=== PATIENT | female | born 1960 | race Caucasian/White ===

== ENCOUNTER 2019-08-18 08:19 | Emergency (ER) | payer BC ==
--- OUTSIDE RECORDS SUMMARY | 2019-08-18 08:27 | XMS REPORT | Continuity of Care Document ---
:1960 External Reference #:[id number] Author Name Mariana Carbone, OPHTHALMOLOGY SURGICAL TECHNICIAN Address [address] [place] [id number] Care Team Providers Name Role Phone Eugenio Goodrich MD - Dermatology Care Team Information Manager Of Broadcast Content Fabiola Tay Care Team Information Manager Of Broadcast Content [phone] Zach Madrid MD - Orthopaedic Care Team Information Manager Of Broadcast Content Surgery Talya Galloway NP - Family Care Team Information Manager Of Broadcast Content [phone] [facility] - Care Team Information Manager Of Broadcast Content Orthopaedic Surgery Problems Active Problems Provider Date Pure hypercholesterolemia Onset: 06/16/2015 Low back pain DigioSharon lopezricia, OPHTHALMOLOGY SURGICAL TECHNICIAN Onset: 07/21/2015 Allergic rhinitis DigiovannaSharonMariana, OPHTHALMOLOGY SURGICAL TECHNICIAN Onset: 07/19/2017 Mixed hyperlipidemia Digiovanna, Mariana, OPHTHALMOLOGY SURGICAL TECHNICIAN Onset: 07/19/2017 Tear film insufficiency Digiovanna, Mariana, OPHTHALMOLOGY SURGICAL TECHNICIAN Onset: 07/19/2017 Essential hypertension Digiovanna, Mariana, OPHTHALMOLOGY SURGICAL TECHNICIAN Onset: 07/19/2017 Posttraumatic stress disorder Digiovanna, Mariana, OPHTHALMOLOGY SURGICAL TECHNICIAN Onset: 07/19/2017 Vitamin D deficiency Digiovanna, Mariana, OPHTHALMOLOGY SURGICAL TECHNICIAN Onset: 04/02/2019 Social History Type Date Description Comments Sex Unknown ETOH Use Denies alcohol use Tobacco Use Start: Unknown End: Unknown Patient is a former smoker quit Smoking Status Reviewed: 05/21/19 Patient is a former smoker quit 12/17/16 Allergies, Adverse Reactions, Alerts Active Allergies Reaction Severity Comments Date Diprivan stopped breathing 04/19/2017 Seasonal 12/05/2017 Inactive Allergies NKDA 07/01/2015 Medications Active Medications SIG Qnty Indications Ordering Date Provider Cyclobenzaprine HCL 1-2 by mouth 30tabs M25.511 Digiovanna, 06/22/2019 5mg every 8 hours Mariana, OPHTHALMOLOGY SURGICAL TECHNICIAN Tablets as needed for pain Montelukast Sodium take 1 tablet 90tabs J30.9 Digiovanna, 12/05/2017 10mg by mouth once Mariana, OPHTHALMOLOGY SURGICAL TECHNICIAN Tablets daily Escitalopram Oxalate take 2 tablets 180tabs F44.4 Digiovanna, 09/05/2017 10mg by mouth once Mariana, OPHTHALMOLOGY SURGICAL TECHNICIAN Tablets daily through October then return to 1 daily F43.10 Fluticasone Propionate use one spray in 48gm F30.9 Digiovanna, Mariana, 07/19/2017 each nostril every OPHTHALMOLOGY SURGICAL TECHNICIAN 50mcg/Act Suspension day regularly J30.9 Lisinopril take 1 tablet by 90tabs I10 Digiovanna, Mariana, 07/19/2017 5mg Tablets mouth once daily OPHTHALMOLOGY SURGICAL TECHNICIAN Rosuvastatin Calcium take 1 tablet by 90tabs E78.2 Digiovanna, Mariana, 07/30/2016 10mg mouth every OPHTHALMOLOGY SURGICAL TECHNICIAN Tablets evening Ibuprofen 3-4 tabs by mouth M54.5 Unknown 200mg Capsules three times a day as needed with food or snack for pain Xyzal Allergy 24HR 1 by mouth every J30.9 Unknown 5mg day as needed Tablets Fish Oil Concentrate 1 by mouth every E78.2 Unknown 1000mg day Capsules Immunizations CPT Code Status Date Vaccine Reaction Lot # [id number] Given 05/07/2019 Influenza (Non Billable) Given at [facility], Unspecified [facility]. --per pt today. SA,UNIT SECY 06/08/19 [id number] Given 11/06/2018 Shingrix (Shingles) Zoster Vaccine HZV, Recombinant, [place] [address]100 Given 06/26/2018 Tdap (Adacel) Ages 7 And Im inj completed, Pt [id number] Above Only tolerated well [id number] Given 05/23/2018 [place] [id number] Given 05/23/2018 Shingrix (Shingles) Zoster per pt Vaccine HZV, Recombinant, Subunit, Adj Q2035 Given 07/05/2017 Afluria Imunization [facility] [id number] Given 07/01/2015 Pneumococcal 23 Immunization [id number] Adult Or Immunosuppressed Patient Vital Signs Date Vital Result Comment 07/06/2019 11:34am Weight 233.00 lb Heart Rate 88 /min BP Systolic 144 mmHg BP Diastolic 84 mmHg Respiratory Rate 18 /min Height 59 inches 4'11" [facility] 04/02/19 BMI (Body Mass Index) 47.1 kg/m2 06/22/2019 1:46pm Weight 230.00 lb Heart Rate 80 /min BP Systolic 144 mmHg BP Diastolic 82 mmHg Respiratory Rate 18 /min Height 59 inches 4'11" [facility] 04/02/19 BMI (Body Mass Index) 46.4 kg/m2 Results Test Acquired Facility Test Result H/L Range Note Date Laboratory 05/09/2019 [facility] Cologuard Negative Not 1 test finding Applicable Laboratory 03/20/2019 [facility] Vitamin D 25 20 ng/mL Low 30-100 2 test finding Hydroxy Lipid 03/20/2019 [facility] Cholesterol 161 mg/dL 50-199 Treatment Triglycerides 149 mg/dL 30-200 HDL 40 mg/dL 35-85 3 Chol/ HDL Ratio 4.0 ratio 3.7-5.6 VLDL 30 mg/dL High 2-29 LDL (Calc) 91 mg/dL 20-99 4 Alt 18 U/L 3-42 Ast 13 U/L 8-42 Basic (BMP) 03/20/2019 [facility] Sodium 141 mmol/L 135-146 5 Potassium 4.2 mmol/L 3.5-5.2 Chloride# 102 mmol/L 97-110 6 Carbon Dioxide 29 mmol/L 24-34 Glucose 96 mg/dL 70-105 BUN 15 mg/dL 6-26 Creatinine 0.9 mg/dL 0.5-1.4 Calcium 9.1 mg/dL 8.5-10.5 7 Female Egfr 74 >60 8 Male Egfr 94 >60 9 Anion Gap 10 mmol/L 5-15 10 CBC with Auto Diff-fcmg 03/20/2019 [facility] WBC 4.9 K/uL 4.1-11.0 RBC 4.30 M/uL 4.00-5.40 Hemoglobin 13.0 gm/dL 12.0-16.0 Hematocrit 38.5 % 36.0-47.0 MCV 89.4 fL 80.0-97.0 MCH 30.2 pg 27.0-32.0 MCHC 33.8 g/dL 32.0-36.0 RDW 12.7 % 11.5-14.5 PLT Count 196 K/ul 140-400 MPV 7.3 FL 7.1-10.7 Neutrophil 50.7 % 35.0-75.0 Lymphocyte 40.5 % 16.0-52.0 Monocyte 5.9 % 2.0-10.0 Eosinophil 1.7 % 0.0-5.0 Basophil 1.2 % 0.0-4.0 Abs Neutrophils 2.5 K/uL 2.1-8.0 Abs Lymphocytes 2.0 K/uL 0.8-5.5 Abs Monocytes 0.3 K/uL 0.1-1.0 Abs Eosinophils 0.1 K/uL 0.0-0.5 Abs Basophils 0.1 K/uL 0.0-0.3 1 A negative result indicates a low likelihood that a colorectal cancer (CRC) or an advanced adenoma (adenomatous polyps with more advanced pre-malignant features) is present. The chance that a person wit h a negative Cologuard test has a colorectal cancer is less than 1 in 1500 ( negative predictive value >99.9%) or has an advanced adenoma is less than 5.3% ( negative predictive value 94.7%). These jessica a are based on a prospective cross-sectional screening study of 10,000 individuals at average risk for colorectal cancer who were screened with both Cologuard and colonoscopy. (Ivon Abraham. et al, N Eng l J Med 2014;370(14):4887-9931) COLOGUARD RE-SCREENING RECOMMENDATION: Periodic routine colorectal cancer screening is an important part of preventive healthcare for asymptomatic persons at average risk for colorectal cancer. Following a negative Cologuard result, the [place] [employer] and U.S. Multi-Society Task Force screening guidelines recommend a Cologuard re-screening interval of 3 years. References: [employer] (ACS). Colorectal cancer prevention and early detection. [place], [place]: [employer]; [updated 2015Nov 08]. https://www.cancer.org/cancer/gbioi-hqjuyu-xxkbp r/nrtgiofss-tkjlopggz-ratjoqs/acs-recommendations.html. Accessed March 17, 2018; Aftab RAYMOND Ming CR, Faith DugganK, Colorectal Cancer Screening: Recommendations for Physicians and Patients from the U.S. M ulti-Society Task Force on Colorectal Cancer Screening, Am J Gastroenterology 2017; 112:8944-0968. Test Type: Composite algorithmic analysis of stool DNA-biomarkers with hemoglobin immunoassay. Quantitative values of individual biomarkers are not reportable and are not associated with individual biomarker result reference ranges. Precautions and Limitations: Cologuard is intended for colorectal cancer screening of adults of either sex, 50 years or older, who are at typical average-risk for colorectal cancer. A negative C ologuard test result does not guarantee the absence of colorectal cancer or advanced adenoma (pre-cancer). Patients with a negative Cologuard test result should be advised to continue participating in a colorectal cancer screening program. Cologuard may produce a positive result , even though a colonoscopy may not find colorectal cancer or precancerous polyps. The performance of Cologuard has been esta blished in a cross sectional study (i.e., single point in time). Performance has not been evaluated in adults who have been previously tested with Cologuard or in patients less than 50 years of age. Col oguard has been approved for use by the U.S. FDA. Cologuard performance data in a 10,000 patient pivotal study using colonoscopy as the reference method can be accessed at the following location: www.[employer]results. Additional description of the Cologuard test process, warnings and precautions can be found at www.cologuardtest.com. Rx Only. 2 Clinical Guidelines for recommended serum 25(OH)Vitamin D Deficient at less than 20 ng/mL Insufficient at 20 to <30 ng/mL Sufficient at 30-100 ng/mL Toxicity at greater than 100 ng/mL 3 Per NCEP ATP III Guidelines: Results lower than 40 mg/dL are suggestive of increased risk for coronary artery disease. Results > or = to 60 mg/dL are considered a negative risk factor. 4 Per NCEP ATP III Guidelines: Normal Population <130 Patients with medical conditions: CHD/DM Optimal: <100 Borderline high: 130-159 High: 160-189 Very high: >189 5 Updated reference range on new analyzer 6 Updated reference range on new analyzer 7 Updated reference range 11-15-2018 8 Concerning GFR Guidelines for Americans: Normal function or mild renal disease, if clinically at risk: >/= 60 mL/min Moderately decreased: 30-59 Severely decreased: 15-29 Renal failure: <15 There is reduced accuracy above 60ml/min/1.73 m squared, but the numeric value may be clinically useful in the near 60 range 9 Concerning GFR Guidelines: Normal function or mild renal disease, if clinically at risk: >/= 60 mL/min Moderately decreased: 30-59 Severely decreased: 15-29 Renal failure: <15 There is reduced accuracy above 60ml/min/1.73 m squared, but the numeric value may be clinically useful in the near 60 range Glomerular Filtration Rate (GFR) is estimated based on the CKD-EPI equation, which assumes a steady state for creatinine as recommended by the National Kidney Disease Education Program in conjunction with the National Institutes of Health and the National Kidney Foundation. Clinical conditions in which it may be necessary to measure GFR by using clearance methods include extremes of age and body size, severe malnutrition or obesity, diseases of skeletal muscle, paraplegia or quadriplegia, vegetarian diet, rapidly changing kidney function, and calculation of the dose of potentially toxic drugs that are excreted by the kidneys. 10 Updated Reference Range Procedures Date Code Description Status 04/16/2019 [id number] Mammogram Completed 09/05/2017 [id number] Mammogram Completed 12/17/2016 [id number] Colonoscopy Completed Medical Devices Description No Information Available Encounters Type Date Location Provider Dx Diagnosis Office Visit 06/22/2019 MICHELE Carbone, M25.511 Pain in RIGHT 1:45p Mariana, OPHTHALMOLOGY SURGICAL TECHNICIAN shoulder Z68.42 Body mass index (BMI) 45.0-49.9, adult Office Visit 2019 1:45p Mariana Montgomery, M25.511 Pain in RIGHT OPHTHALMOLOGY SURGICAL TECHNICIAN shoulder Z68.42 Body mass index (BMI) 45.0-49.9, adult Office Visit 05/28/2019 11:30a Mariana Montgomery, M25.511 Pain in RIGHT OPHTHALMOLOGY SURGICAL TECHNICIAN shoulder F43.10 Post-traumatic stress disorder, unspecified Office Visit 05/21/2019 2:45p Mariana Montgomery, M25.511 Pain in RIGHT OPHTHALMOLOGY SURGICAL TECHNICIAN shoulder Z68.42 Body mass index (BMI) 45.0-49.9, adult Office Visit 05/17/2019 9:30a [facility] Emilia Comer PA M25.511 Pain in RIGHT shoulder Z68.42 Body mass index (BMI) 45.0-49.9, adult Office Visit 04/02/2019 10:30a [facility] Digiovankarely, Mariana, Z00.00 Encntr for general OPHTHALMOLOGY SURGICAL TECHNICIAN adult medical exam w/o abnormal findings I10 Essential (primary) hypertension E78.2 Mixed hyperlipidemia F43.10 Post-traumatic stress disorder, unspecified R53.1 Weakness J30.9 Allergic rhinitis, unspecified H04.129 Dry eye syndrome of unspecified lacrimal gland E55.9 Vitamin D deficiency, unspecified Z12.11 Encounter for screening for malignant neoplasm of colon Z13.31 Encounter for screening for depression Z68.41 Body mass index (BMI) 40.0-44.9, adult Assessments Date Code Description Provider 07/06/2019 M25.511 Pain in RIGHT shoulder Digiovanna, Mariana, OPHTHALMOLOGY SURGICAL TECHNICIAN 06/22/2019 M25.511 Pain in RIGHT shoulder Digiovanna, Mariana, OPHTHALMOLOGY SURGICAL TECHNICIAN 06/22/2019 Z68.42 Body mass index (BMI) 45.0-49.9, adult Digiovanna, Mariana, OPHTHALMOLOGY SURGICAL TECHNICIAN 2019 M25.511 Pain in RIGHT shoulder Digiovanna, Mariana, OPHTHALMOLOGY SURGICAL TECHNICIAN 2019 Z68.42 Body mass index (BMI) 45.0-49.9, adult Digiovanna, Mariana, OPHTHALMOLOGY SURGICAL TECHNICIAN 05/28/2019 M25.511 Pain in RIGHT shoulder Digiovanna, Mariana, OPHTHALMOLOGY SURGICAL TECHNICIAN 05/28/2019 F43.10 Post-traumatic stress disorder, Digiovanna, Mariana, OPHTHALMOLOGY SURGICAL TECHNICIAN unspecified 05/21/2019 M25.511 Pain in RIGHT shoulder Digiovanna, Mariana, OPHTHALMOLOGY SURGICAL TECHNICIAN 05/21/2019 Z68.42 Body mass index (BMI) 45.0-49.9, adult Digiovanna, Mariana, OPHTHALMOLOGY SURGICAL TECHNICIAN 05/17/2019 M25.511 Pain in RIGHT shoulder Emilia Comer PA 05/17/2019 Z68.42 Body mass index (BMI) 45.0-49.9, adult Emilia Comer PA 04/02/2019 Z00.00 Encounter for general adult medical DigioSharon lopezricia, OPHTHALMOLOGY SURGICAL TECHNICIAN examination without abnormal findings 04/02/2019 I10 Essential (primary) hypertension DigiovannaSharonMariana, OPHTHALMOLOGY SURGICAL TECHNICIAN 04/02/2019 E78.2 Mixed hyperlipidemia Digiovanna, Mariana, OPHTHALMOLOGY SURGICAL TECHNICIAN 04/02/2019 F43.10 Post-traumatic stress disorder, Digiovanna, Mariana, OPHTHALMOLOGY SURGICAL TECHNICIAN unspecified 04/02/2019 R53.1 Weakness Digiovanna, Mariana, OPHTHALMOLOGY SURGICAL TECHNICIAN 04/02/2019 J30.9 Allergic rhinitis, unspecified Digiovanna, Mariana, OPHTHALMOLOGY SURGICAL TECHNICIAN 04/02/2019 H04.129 Dry eye syndrome of unspecified lacrimal Digiovanna, Mariana, OPHTHALMOLOGY SURGICAL TECHNICIAN gland 04/02/2019 E55.9 Vitamin D deficiency, unspecified Digiovanna, Mariana, OPHTHALMOLOGY SURGICAL TECHNICIAN 04/02/2019 Z12.11 Encounter for screening for malignant DigiovanSharon caliMariana , OPHTHALMOLOGY SURGICAL TECHNICIAN neoplasm of colon 04/02/2019 Z13.31 Encounter for screening for depression DigiovannaSharonMariana, OPHTHALMOLOGY SURGICAL TECHNICIAN 04/02/2019 Z68.41 Body mass index (BMI) 40.0-44.9, adult DigioSharon lopezricia, OPHTHALMOLOGY SURGICAL TECHNICIAN 03/20/2019 F43.10 Post-traumatic stress disorder, Digiovanna, Mariana, OPHTHALMOLOGY SURGICAL TECHNICIAN unspecified 03/20/2019 F43.10 [facility]-traumatic stress disorder, [facility] unspecified 03/20/2019 E78.2 Mixed hyperlipidemia [facility] 03/20/2019 F43.10 Post-traumatic stress disorder, Schedule, Laboratory unspecified 03/20/2019 E78.2 Mixed hyperlipidemia Digiovanna, Mariana, OPHTHALMOLOGY SURGICAL TECHNICIAN 03/20/2019 I10 Essential (primary) hypertension [facility] 03/20/2019 E55.9 Vitamin D deficiency, unspecified [facility] 03/20/2019 E78.2 Mixed hyperlipidemia Schedule, Laboratory 03/20/2019 I10 Essential (primary) hypertension DigioSharon lopezricia, OPHTHALMOLOGY SURGICAL TECHNICIAN 03/20/2019 I10 Essential (primary) hypertension Schedule, Laboratory Plan of Treatment Future Appointment(s):09/25/2019 8:00 am - Schedule, Laboratory at [facility]2019 8:30 am - Talya Galloway NP at [facility] Functional Status Description No Information Available Mental Status Description No Information Available Referrals Refer to Dr Reason for Referral Status Appt Date [facility] Evaluation of R shoulder injury Closed 07/02 Faxed all necessary information for the to review and schedule the pt. [place] 06/25 [address] [id number] [phone]
--- OUTSIDE RECORDS SUMMARY | 2019-08-18 08:27 | XMS REPORT | Continuity of Care Document ---
:1960 External Reference #:[id number] Author Name Mariana Carbone, SEARCH MARKETING ANALYST Address [address] [place] [id number] Care Team Providers Name Role Phone Eugenio Goodrich MD - Dermatology Care Team Information Graduate Internship Fabiola Tay Care Team Information Graduate Internship [phone] Zach Madrid MD - Orthopaedic Care Team Information Graduate Internship Surgery Talya Galloway NP - Family Care Team Information Graduate Internship [phone] Problems Active Problems Provider Date Pure hypercholesterolemia Onset: 06/16/2015 Low back pain DigiovanSharon caliMariana, SEARCH MARKETING ANALYST Onset: 07/21/2015 Allergic rhinitis DigiovannaSharonMariana, SEARCH MARKETING ANALYST Onset: 07/19/2017 Mixed hyperlipidemia Digiovanna, Mariana, SEARCH MARKETING ANALYST Onset: 07/19/2017 Tear film insufficiency Digiovanna, Mariana, SEARCH MARKETING ANALYST Onset: 07/19/2017 Essential hypertension Digiovanna, Mariana, SEARCH MARKETING ANALYST Onset: 07/19/2017 Posttraumatic stress disorder Digiovanna, Mariana, SEARCH MARKETING ANALYST Onset: 07/19/2017 Vitamin D deficiency Digiovanna, Mariana, SEARCH MARKETING ANALYST Onset: 04/02/2019 Social History Type Date Description [...] Digiovanna, 06/22/2019 5mg every 8 hours Mariana, SEARCH MARKETING ANALYST Tablets as needed for pain Montelukast Sodium take 1 tablet 90tabs J30.9 Digiovanna, 12/05/2017 10mg by mouth once Mariana, SEARCH MARKETING ANALYST Tablets daily Escitalopram Oxalate take 2 tablets 180tabs F44.4 Digiovanna, 09/05/2017 10mg by mouth once Mariana, SEARCH MARKETING ANALYST Tablets daily through October then return to 1 daily F43.10 Fluticasone Propionate use one spray in 48gm F30.9 Digiovanna, Mariana, 07/19/2017 each nostril every SEARCH MARKETING ANALYST 50mcg/Act Suspension day regularly J30.9 Lisinopril take 1 tablet by 90tabs I10 Digiovanna, Mariana, 07/19/2017 5mg Tablets mouth once daily SEARCH MARKETING ANALYST Rosuvastatin Calcium take 1 tablet by 90tabs E78.2 Digiovanna, Mariana, 07/30/2016 10mg mouth every SEARCH MARKETING ANALYST Tablets evening Ibuprofen 3-4 tabs by mouth [...] Given 05/07/2019 Influenza (Non Billable) Given at [facility], [address] --per pt today. SA,EXECUTIVE COMPENSATION ANALYST 06/08/19 28206 Given 11/06/2018 Shingrix (Shingles) Zoster Vaccine HZV, Recombinant, Sub[place], [place]j 36687 Given 06/26/2018 Tdap (Adacel) Ages 7 And Im inj completed, Pt [id number] Above Only tolerated well Q2039 Given 05/23/2018 [place] [address] Given 05/23/2018 Shingrix (Shingles) Zoster per pt Vaccine HZV, Recombinant, Subunit, Adj Q2035 Given 07/05/2017 Afluria Imunization [facility] 76075 Given 07/01/2015 Pneumococcal 23 Immunization [id number] Adult Or Immunosuppressed Patient Vital Signs Date Vital Result Comment 06/22/2019 1:46pm Weight 230.00 lb Heart Rate 80 /min BP Systolic 144 mmHg BP Diastolic 82 mmHg Respiratory Rate 18 /min Height 59 inches 4'11" [facility] 04/02/19 BMI (Body Mass Index) 46.4 kg/m2 2019 1:35pm Weight 225.12 lb Heart Rate 76 /min BP Systolic 122 mmHg BP Diastolic 74 mmHg Respiratory Rate 16 /min Height 59 inches 4'11" [facility] 04/02/19 BMI (Body Mass Index) 45.5 kg/m2 Results Test Acquired Facility Test Result [...] Ast 13 U/L 8-42 Basic (BMP) 03/20/2019 [facility] Sodium 141 mmol/L 135-146 5 Potassium 4.2 mmol/L 3.5-5.2 Chloride# 102 mmol/L 97-110 6 Carbon Dioxide 29 mmol/L 24-34 Glucose 96 mg/dL 70-105 BUN 15 mg/dL 6-26 Creatinine 0.9 mg/dL 0.5-1.4 Calcium 9.1 mg/dL 8.5-10.5 7 Female Egfr 74 >60 8 Male Egfr 94 >60 9 Anion Gap 10 mmol/L 5-15 10 CBC with Auto Diff-fcmg 03/20/2019 [place] WBC 4.9 K/uL 4.1-11.0 RBC 4.30 M/uL [...] screened with both Cologuard and colonoscopy. (Ivon Chiu al, N Eng l J Med 2014;370(14):7530-4708) COLOGUARD RE-SCREENING RECOMMENDATION: Periodic routine colorectal cancer screening is an important part of preventive healthcare for asymptomatic persons at average risk for colorectal cancer. Following a negative Cologuard result, the [place] [employer] and U.S. Multi-Society Task Force screening guidelines recommend a Cologuard re-screening interval of 3 years. References: [place] [employer] (ACS). Colorectal cancer prevention and early detection. [place], [place]: [place] [employer]; [updated 2015Nov 08]. https://www.cancer.org/cancer/uusme-rqsdfm-dlrxu r/fpwqwxoex-zzslewzzo-nexsrtc/acs-recommendations.html. Accessed March 17, 2018; Aftab DK, Ming CR, Faith ABARCA, Colorectal Cancer Screening: Recommendations for Physicians and Patients from the U.S. M ulti-Society Task Force on Colorectal Cancer Screening, Am J Gastroenterology 2017; 112:6747-5002. Test Type: Composite algorithmic analysis of stool [...] can be accessed at the following location: www.[email or web address]/results. Additional description of the Cologuard test process, [...] Range Procedures Date Code Description Status 04/16/2019 [id number] Mammogram Completed 09/05/2017 [id number] Mammogram Completed 12/17/2016 [id number] Colonoscopy Completed Medical Devices Description No Information Available Encounters Type Date Location Provider Dx Diagnosis Office Visit 06/22/2019 MICHELE Carbone M25.511 Pain in RIGHT 1:45p Mariana, SEARCH MARKETING ANALYST shoulder Z68.42 Body mass index (BMI) 45.0-49.9, adult Office Visit 2019 1:45p [facility] Mariana Carbone M25.511 Pain in RIGHT SEARCH MARKETING ANALYST shoulder Z68.42 Body mass index (BMI) 45.0-49.9, adult Office Visit 05/28/2019 11:30a [facility] Mariana Carbone M25.511 Pain in RIGHT SEARCH MARKETING ANALYST shoulder F43.10 Post-traumatic stress disorder, unspecified Office Visit 05/21/2019 2:45p [facility] Mariana Carbone, M25.511 Pain in RIGHT SEARCH MARKETING ANALYST shoulder Z68.42 Body mass index (BMI) 45.0-49.9, adult Office Visit 05/17/2019 9:30a [facility] Emilia Comer PA M25.511 Pain in RIGHT shoulder Z68.42 Body mass index (BMI) 45.0-49.9, adult Office Visit 04/02/2019 10:30a [facility] Mariana Carbone, Z00.00 Encntr for general SEARCH MARKETING ANALYST adult medical exam w/o abnormal findings I10 [...] 40.0-44.9, adult Assessments Date Code Description Provider 06/22/2019 M25.511 Pain in RIGHT shoulder Digiovanna, Mariana, SEARCH MARKETING ANALYST 06/22/2019 Z68.42 Body mass index (BMI) 45.0-49.9, adult Digiovanna, Mariana, SEARCH MARKETING ANALYST 2019 M25.511 Pain in RIGHT shoulder Digiovanna, Mariana, SEARCH MARKETING ANALYST 2019 Z68.42 Body mass index (BMI) 45.0-49.9, adult Digiovanna, Mariana, SEARCH MARKETING ANALYST 05/28/2019 M25.511 Pain in RIGHT shoulder Digiovanna, Mariana, SEARCH MARKETING ANALYST 05/28/2019 F43.10 Post-traumatic stress disorder, Digiovanna, Mariana, SEARCH MARKETING ANALYST unspecified 05/21/2019 M25.511 Pain in RIGHT shoulder Digiovanna, Mariana, SEARCH MARKETING ANALYST 05/21/2019 Z68.42 Body mass index (BMI) 45.0-49.9, adult Digiovanna, Mariana, SEARCH MARKETING ANALYST 05/17/2019 M25.511 Pain in RIGHT shoulder Emilia Comer PA 05/17/2019 Z68.42 Body mass index (BMI) 45.0-49.9, adult Emilia Comer PA 04/02/2019 Z00.00 Encounter for general adult medical DigSharon parraricia, SEARCH MARKETING ANALYST examination without abnormal findings 04/02/2019 I10 Essential (primary) hypertension DigSharon parraricia, SEARCH MARKETING ANALYST 04/02/2019 E78.2 Mixed hyperlipidemia Digiovanna, Mariana, SEARCH MARKETING ANALYST 04/02/2019 F43.10 Post-traumatic stress disorder, Digiovanna, Mariana, SEARCH MARKETING ANALYST unspecified 04/02/2019 R53.1 Weakness Digiovanna, Mariana, SEARCH MARKETING ANALYST 04/02/2019 J30.9 Allergic rhinitis, unspecified Digiovanna, Mariana, SEARCH MARKETING ANALYST 04/02/2019 H04.129 Dry eye syndrome of unspecified lacrimal Digiovanna, Mariana, SEARCH MARKETING ANALYST gland 04/02/2019 E55.9 Vitamin D deficiency, unspecified Digiovanna, Mariana, SEARCH MARKETING ANALYST 04/02/2019 Z12.11 Encounter for screening for malignant DigiovannaSharonMariana , SEARCH MARKETING ANALYST neoplasm of colon 04/02/2019 Z13.31 Encounter for screening for depression Digiovanna, Mariana, SEARCH MARKETING ANALYST 04/02/2019 Z68.41 Body mass index (BMI) 40.0-44.9, adult Digiovanna, Mariana, SEARCH MARKETING ANALYST 03/20/2019 F43.10 Post-traumatic stress disorder, Digiovanna, Mariana, SEARCH MARKETING ANALYST unspecified 03/20/2019 F43.10 Post-traumatic stress disorder, [facility] unspecified 03/20/2019 E78.2 Mixed hyperlipidemia [facility] 03/20/2019 F43.10 Post-traumatic stress disorder, Schedule, Laboratory unspecified 03/20/2019 E78.2 Mixed hyperlipidemia Digiovanna, Mariana, SEARCH MARKETING ANALYST 03/20/2019 I10 Essential (primary) hypertension [facility] 03/20/2019 E55.9 Vitamin D deficiency, unspecified [facility] 03/20/2019 E78.2 Mixed hyperlipidemia Schedule, Laboratory 03/20/2019 I10 Essential (primary) hypertension Digiovanna, Mariana, SEARCH MARKETING ANALYST 03/20/2019 I10 Essential (primary) hypertension Schedule, Laboratory Plan of Treatment Future Appointment(s):09/25/2019 8:00 am - Schedule, Laboratory at [facility]2019 8:30 am - Talya Galloway NP at [facility] Functional Status Description No Information Available Mental Status Description No Information Available Referrals Description No Information Available
[2019-08-18 08:39] VITALS: BP 115/46
--- NOTE | 2019-08-18 09:00 | UC ---
Throat Pain/Nasal Faisal HPI - HPI Summary HPI Summary: Pt presents with c/o nasal congestion, fatigue, body aches X 5 days. Pt has been taking mucinex twice daily with little to no improvement of symptoms. - History of Current Complaint Chief Complaint: UCRespiratory Stated Complaint: SINUSES Time Seen by Provider: 08/18/19 08:21 Hx Obtained From: Patient ?: No Onset/Duration: Gradual Onset, Lasting Days, Still Present, Worse Since - onset Severity: Moderate Pain Intensity: 0 Cough: Nonproductive Associated Signs & Symptoms: Positive: Sinus Discomfort, Nasal Discharge, Fever - Epiglottits Risk Factors Epiglottis Risk Factors: Negative - Allergies/Home Medications Allergies/Adverse Reactions: Allergies Allergy/AdvReac Type Severity Reaction Status Date / Time Divipram Allergy Severe Anaphylatic Uncoded 08/18/19 08:43 Shock propofal Allergy Severe coded Uncoded 08/18/19 08:41 Home Medications: Home Medications Cyclobenzaprine (NF) [Cyclobenzaprine 5 MG (NF)] 5 mg PO TID PRN 08/18/19 [ History Confirmed 08/18/19] Escitalopram Oxalate [Lexapro] 20 mg PO DAILY 08/18/19 [History Confirmed ] Fluorometholone 0.1% OPTH.ALEXANDRA* [Fml 0.1% Opth.susp*] 1 drop BOTH EYES DAILY 08/06 [History Confirmed 08/18/19] Fluticasone Propionate [Flonase Allergy Relief] 2 spray .ROUTE DAILY 08/18/19 [ History Confirmed 08/18/19] Lisinopril [Zestril 5 MG-] 5 mg PO DAILY 08/18/19 [History Confirmed 08/18/19] Montelukast Sodium 10 mg PO DAILY 08/18/19 [History Confirmed 08/18/19] Rosuvastatin Calcium [Crestor] 10 mg PO DAILY 08/18/19 [History Confirmed ] PMH/Surg Hx/FS Hx/Imm Hx Previously Healthy: Yes Cardiovascular History: Cardiac Disease, Hypertension - Surgical History Surgery Procedure, Year, and Place: tonsillectomy, - Family History Known Family History: Positive: Cardiac Disease - Social History Occupation: Employed Full-time Lives: With Family Alcohol Use: None Substance Use Type: None Smoking Status (MU): Never Smoked Tobacco Have You Smoked in the Last Year: No Review of Systems All Other Systems Reviewed And Are Negative: Yes Constitutional: Positive: Negative, Fever, Chills, Fatigue Skin: Positive: Negative Eyes: Positive: Negative ENT: Positive: Nasal Discharge, Sinus Congestion Respiratory: Positive: Cough Cardiovascular: Positive: Negative Gastrointestinal: Positive: Negative Genitourinary: Positive: Negative Motor: Positive: Negative Neurovascular: Positive: Negative Musculoskeletal: Positive: Myalgia Neurological: Positive: Negative Psychological: Positive: Negative Is Patient Immunocompromised?: No Physical Exam Triage Information Reviewed: Yes Appearance: Ill-Appearing Vital Signs: Initial Vital Signs Temp 99.1 F 08/18/19 08:28 Pulse 109 08/18/19 08:28 Resp 18 08/18/19 08:28 BP 115/46 08/18/19 08:28 Pulse Ox 100 08/18/19 08:28 Vital Signs Reviewed: Yes Eye Exam: Normal ENT: Positive: Nasal congestion, TM bulging Dental Exam: Normal Neck exam: Normal Respiratory Exam: Normal Respiratory: Positive: Normal breath sounds Cardiovascular Exam: Normal Cardiovascular: Positive: Tachycardia Musculoskeletal Exam: Normal Neurological Exam: Normal Psychological Exam: Normal Skin Exam: Normal Throat Pain/Nasal Course/Dx - Course Course Of Treatment: Pt states that she thinks she has a sinus infection and believes that she needs an antibiotic. - Differential Dx/Diagnosis Differential Diagnosis/HQI/PQRI: Otitis Media, Pharyngitis, Sinusitis Provider Diagnosis: Sinusitis Discharge ED - Sign-Out/Discharge Documenting (check all that apply): Patient Departure All imaging exams completed and their final reports reviewed: No Studies - Discharge Plan Condition: Stable Disposition: HOME Prescriptions: Amoxicillin PO (*) [Amoxicillin 875 MG (*)] 875 mg PO Q12H #20 tab Patient Education Materials: Sinusitis (ED) Referrals: Talya Galloway NP [Primary Care Provider] - If Needed - Billing Disposition and Condition Condition: STABLE Disposition: Home - Attestation Statements Provider Attestation: I was available for consult. This patient was seen by the ABDIAZIZ. The patient was not presented to , seen by or examined by -Rolan Breen MD
[2019-08-18 09:08] LABS: Influenza A Molecular Negative (Negative); Influenza B Molecular Negative (Negative)
== END 2019-08-18 09:25 | disposition home or self-care (01) ==
LOC: UCCORT 08:19
DX: J32.9 Chronic sinusitis, unspecified (principal); I10 Essential (primary) hypertension; R53.83 Other fatigue; R05 Cough; Z88.4 Allergy status to anesthetic agent; Z91.09 Other allergy status, other than to drugs and biological substances; Z79.899 Other long term (current) drug therapy
CPT/HCPCS: 99202; G0463